=== PATIENT | female | born 1995 | race Native Hawaiian/Other Pacific Islander ===

== ENCOUNTER 2020-03-14 12:25 | Emergency (ER) | payer BC, OTHER ==
[~2020-03-14] VITALS: Ht 157.5 cm; Wt 63.5 kg
[2020-03-14 12:25] VITALS: TEMP 98.7
[2020-03-14 13:14] VITALS: BP 97/62
== END 2020-03-14 14:25 | disposition home or self-care (01) ==
LOC: ED 12:25
DX: T78.49XA Other allergy, initial encounter (principal)
CPT/HCPCS: 96372; 99282; J2930

== ENCOUNTER 2020-05-31 09:24 | Outpatient (CLI) | payer BC, OTHER ==
[2020-05-31 10:05] LABS: POTASSIUM 3.6 mmol/L (3.6-5.2)
== END 2020-06-01 00:35 | disposition home or self-care (01) ==
LOC: LABW 09:24
PROVIDERS: Nurse Practitioner Family
DX: Z34.81 Encounter for supervision of other normal pregnancy, first trimester (principal); M62.82 Rhabdomyolysis
CPT/HCPCS: 36415; 80053; 84156